=== PATIENT | male | born 1995 | race Caucasian/White ===

== ENCOUNTER 2017-12-05 10:34 | Day surgery (SDC) | payer BC ==
[2017-12-05] VITALS (11 sets, daily range): BP systolic 119–137; BP diastolic 70–92
[~2017-12-05] VITALS: Ht 188 cm; Wt 85.7 kg
[~2017-12-05 10:34] MED LIST: HYDR-565 PO; cefazolin/dext.iso 2gm/50ml 50 ML IV ONE; famotidine 20mg tablet PO ONE; ringers solution, lacted 1,000 ML IV SCH
[2017-12-05] MEDS ORDERED: BUPIVAcaine/PF 2.5mg/ml (0.25%) 10ml vial ONE (11:39)
[2017-12-05] MEDS ORDERED: ROPIVAcaine 0.5% (5mg/ml) 30ml vial ONE (11:45)
[2017-12-05] MEDS ORDERED: sevoflurane 250ml liquid IH ONE (12:10)
[2017-12-05] MEDS ORDERED: dexamethasone sod phosphate 10mg/ml inj ONE (12:10)
[2017-12-05] MEDS ORDERED: fentaNYL/PF 50MCG/1 ML 2ML syringe ONE (12:28)
[2017-12-05] MEDS ORDERED: propofol inj 20 ML IV ONE (12:54)
[2017-12-05] MEDS ORDERED: LIDOcaine 1%/PF 5ML 10 MG/ML VIAL ONE (12:54)
[2017-12-05] MEDS ORDERED: ondansetron/PF 4mg/2ml inj ONE (12:54)
[2017-12-05] MEDS ORDERED: ringers solution, lacted 1,000 ML IV SCH (13:06)
[2017-12-05] MEDS ORDERED: ondansetron/PF 4mg/2ml inj IV PRN (13:10)
[2017-12-05] MEDS ORDERED: morphine 4 MG/ML inj SYRINge IV PRN ×2 (13:10)
[2017-12-05] MEDS ORDERED: hydrALAZINE 20mg/ml inj. IV PRN (13:10)
[2017-12-05] MEDS ORDERED: labetalol 20mg/4ml (5mg/ml) syringe IV PRN (13:10)
[2017-12-05] MEDS ORDERED: fentaNYL/PF 50MCG/1 ML 2ML syringe IV PRN ×2 (13:10)
== END 2017-12-05 15:20 | disposition home or self-care (01) ==
LOC: PAS 10:34
PROVIDERS: ATTEND Orthopaedic Surgery Hand Surgery
DX: S52.571A Other intraarticular fracture of lower end of right radius, initial encounter for closed fracture (principal); F32.9 Major depressive disorder, single episode, unspecified; G89.18 Other acute postprocedural pain; Z79.891 Long term (current) use of opiate analgesic; Z72.89 Other problems related to lifestyle; Z72.0 Tobacco use; Z98.890 Other specified postprocedural states; V29.9XXA Motorcycle rider (driver) (passenger) injured in unspecified traffic accident, initial encounter; Y93.89 Activity, other specified; Y92.89 Other specified places as the place of occurrence of the external cause; Y99.8 Other external cause status
CPT/HCPCS: 25609; 64417; 64450; A6222; A6449; C1713; J0690; J1100; J2001; J2405; J2704; J2795; J3010; J7120; A7000; J3490